=== PATIENT | female | born 1970 | race Caucasian/White ===

== ENCOUNTER 2017-12-05 10:08 | Outpatient (REF) | payer OTHER, SELFPAY ==
--- NOTE | 2017-12-05 08:40 | PAPFT_PTH ---
PATIENT: Oly Stewart LOC: [facility] U#:[id number] AGE/SX: 47/F ROOM: RE12/05/[address]: Muna Puente : 1970 BED: DIS: 12/05/2017 SPEC #: [id number] RECD: 12/05/17 12:47 STATUS: GALDINO REQ #: [id number] JOSE ALFREDO: 12/05/17 08:[address]: Muna Puente DEPT: [facility] Cytology RECD BY: Macrina Thompson ENTERED: 12/05/17 12:47 SP TYPE: PAPFT HIWOT DR: Mesha Aly, KHANH Tissues: 1 - CX/ENDOCX FOR PAP SMEARS Procedures: PAP THIN PREP/UVM Screening HPV DNA PROBE Comments: [id number]
== END 2017-12-05 10:28 ==
LOC: LBN 10:08
PROVIDERS: PCP Nurse Practitioner Gerontology; Visit Provider Obstetrics & Gynecology Gynecology
DX: Z12.4 Encounter for screening for malignant neoplasm of cervix (principal); Z11.51 Encounter for screening for human papillomavirus (HPV)
CPT/HCPCS: 88142; 87624

== ENCOUNTER 2017-12-18 00:20 | Outpatient (CLI) | payer OTHER, SELFPAY ==
--- NOTE | 2017-12-18 09:04 | DI.MAMMO_ITS ---
SYMPTOM/DIAGNOSIS: SCREENING, Z12.31 MAMMOGRAMS: Mammograms were interpreted according to the usual protocol including computer analysis with CAD system, tomosynthesis and C view imaging. Comparison with prior examinations. Breast density C. No masses or microcalcifications are seen. There is nothing to suggest malignancy. IMPRESSION: Negative mammogram. Routine screening is recommended. Category I. MQSA ASSESSMENT OF FINDINGS: Negative. Category 1. Patient will receive a letter notifying them of these results. Bi-RADS category C. The breasts are heterogeneously dense, which may obscure small masses.
== END 2017-12-18 00:40 ==
PROVIDERS: PCP Nurse Practitioner Gerontology; Visit Provider Obstetrics & Gynecology Gynecology
DX: Z12.31 Encounter for screening mammogram for malignant neoplasm of breast (principal)
CPT/HCPCS: 77063; 77067

== ENCOUNTER 2018-09-07 16:25 | Outpatient (REF) | payer OTHER, SELFPAY ==
--- NOTE | 2018-09-07 15:10 | SKI_PTH ---
PATIENT: Oly Stewart LOC: [facility] U#:[id number] AGE/SX: 47/F ROOM: RE09/07/[address]: Chanelle Laws MD : 1970 BED: DIS: 09/07/2018 SPEC #: [id number] RECD: 09/07/18 17:27 STATUS: GALDINO REQ #: [id number] JOSE ALFREDO: 09/07/18 15:[address]: Chanelle Laws DEPT: Surgical Specimen RECD BY: Macrina Thompson ENTERED: 09/07/18 17:27 SP TYPE: ALICIA MI DR: Mesha Aly, KHANH Tissues: 1 - SKIN BIOPSY(SHAVE/PUNCH) Procedures: SKIN LEVEL 4 Comments: [id number]
== END 2018-09-07 16:45 ==
LOC: LBN 16:25
PROVIDERS: PCP Nurse Practitioner Gerontology; Visit Provider Surgery
DX: L82.1 Other seborrheic keratosis (principal)
CPT/HCPCS: 88305

== ENCOUNTER 2020-01-20 03:48 | Outpatient (CLI) | payer OTHER, SELFPAY ==
--- NOTE | 2020-01-20 12:00 | DI.MAMMO_ITS ---
EXAM: MG MAMMO SCREENING CLINICAL HISTORY: screening. TECHNIQUE: Bilateral full field digital CC and MLO mammographic images were obtained with 3D tomosyn thesis and utilizing computer aided detection (CAD). COMPARISON: Prior mammograms dating back to 2011, the most recent being December 2017.. Breast ultr asound 2014 was reviewed. FINDINGS: Fibroglandular tissue is moderately dense, this decreasing sensitivity mammogram finding in underlyin g lesions There is a new nodule posteriorly in the left breast, located approximately 6 centimetres in from the nipple., best seen on the 3D MLO imaging and measuring approximately 1.6 by 1.1 centimetres. More e vident on the MLO than the CC view.. There are punctate microcalcifications in this region. No obvi ous no abnormalities seen in the opposite-right breast. No new architectural distortion or skin thickening-traction IMPRESSION: Dense bilateral fibroglandular tissue. New nodule posteriorly in the right breast, probably lateral of center. Spot compression CC and MLO views are recommended. Also breast ultrasound. BI-RADS Category 0 - Assessment Incomplete: Need additional imaging evaluation Breast Density - Category C - Heterogeneously dense Breast density Category C or D implies that the patient has dense breast tissue. Dense breast tissue can make it harder to find cancer on a mammogram. Dense breast tissue is also associated with an incr eased risk of breast cancer. This information about the result of the mammogram report was provided to the patient to raise their awareness. Use this report when you speak with the patient about their risks for breast cancer, which includes their family history. At that time, you may recommend additional screening tests (Ultrasoun d or MRI) as these tests may add significant information. A negative radiographic report should not delay biopsy if a dominant or clinically suspicious mass is present. Up to ten percent of cancers are not identified on mammography. A negative report may reinforce clinical impression. Adenosis and dense breasts may obscure an underlying neoplasm. False positive reports average 6 to 10%. Patient will receive a letter notifying them of these results.
== END 2020-01-20 04:08 ==
PROVIDERS: PCP Nurse Practitioner; Visit Provider Nurse Practitioner
DX: Z12.31 Encounter for screening mammogram for malignant neoplasm of breast (principal); N63.10 Unspecified lump in the right breast, unspecified quadrant
CPT/HCPCS: 77063; 77067

== ENCOUNTER 2020-01-26 00:30 | Outpatient (CLI) | payer OTHER, SELFPAY ==
--- NOTE | 2020-01-26 | DI.US_ITS ---
EXAM: US BREAST LT LIMITED CLINICAL HISTORY: F/U MAMMO, NEW LT BREAST NODULE. TECHNIQUE: Unilateral spot mammographic images were obtained with 3D tomosynthesis and utilizing Photowayser aided detection (CAD). . Complete left breast Ultrasound was also performed. COMPARISON: Prior mammograms dating back to 2011, the most recent being 01/20/2020. This addition al imaging was performed due to findings described on the recent screening mammogram of 01/20/2020. FINDINGS: Additional spot compression 3D cc and MLO views do not dissipate the posteriorly located nodule seen on the recent screening mammogram. We therefore proceeded with breast ultrasound. Complete ultrasound examination of the left breast was performed including all 4 quadrants as well as the retroareolar region and left axilla. This reveals a solitary finding posteriorly at approximately 3 o'clock position which corresponds to the finding on the mammogram. This is comprised of 2 contiguous cysts, the larger being simple in th e smaller being a hemorrhagic cyst, both exhibiting increased through transmission. No worrisome dec reased through transmission. Combined measurement is approximately 13 by 6 millimeters. No other fo alfred findings in all 4 quadrants nor significant retroareolar findings. Left axilla exhibits normal benign-appearing lymph nodes. IMPRESSION: There is a combination of 6 a simple and hemorrhagic microcyst posteriorly in the left breast at 3 o' clock position which corresponds to the finding on the mammogram. Appropriate follow-up is repeat breast ultrasound in 6 months. At that time I recommend that she und ergo bilateral breast ultrasound examination, given the density of her fibroglandular tissue. BI-RADS Category 3 - 6 month - Probably Benign Finding: Recommend follow-up breast ultrasound in 6 mo [facility] Breast Density - Category C - Heterogeneously dense Breast density Category C or D implies that the patient has dense breast tissue. Dense breast tissue can make it harder to find cancer on a mammogram. Dense breast tissue is also associated with an incr eased risk of breast cancer. This information about the result of the mammogram report was provided to the patient to raise their awareness. Use this report when you speak with the patient about their risks for breast cancer, which includes their family history. At that time, you may recommend additional screening tests (Ultrasoun d or MRI) as these tests may add significant information. A negative radiographic report should not delay biopsy if a dominant or clinically suspicious mass is present. Up to ten percent of cancers are not identified on mammography. A negative report may reinforce clinical impression. Adenosis and dense breasts may obscure an underlying neoplasm. False positive reports average 6 to 10%. Patient will receive a letter notifying them of these results.
== END 2020-01-26 00:50 ==
PROVIDERS: PCP Nurse Practitioner; Visit Provider Nurse Practitioner
DX: Z12.31 Encounter for screening mammogram for malignant neoplasm of breast (principal); R92.8 Other abnormal and inconclusive findings on diagnostic imaging of breast; N60.12 Diffuse cystic mastopathy of left breast
CPT/HCPCS: 76642; 77063; 77067

== ENCOUNTER 2021-01-22 02:09 | Outpatient (CLI) | payer OTHER, SELFPAY ==
--- NOTE | 2021-01-22 07:45 | DI.MAMMO_ITS ---
Exam(s) MAMMO SCREENING EXAM: MAMMO SCREENING CLINICAL HISTORY: screening,z12.39. TECHNIQUE: Bilateral full field digital CC and MLO mammographic images were obtained with 3D tomosyn thesis and utilizing computer aided detection (CAD). COMPARISON: Prior mammograms dating back to 2011, the most recent being January 2020. FINDINGS: Fibroglandular tissue pattern is again noted be moderately dense, this somewhat decreasing the sensit ivity of the mammogram for finding hidden underlying lesions. There are no obvious new significant radiographic findings in the right breast. Posteriorly in the left breast there is a suggestion a nodular density located approximately 6 cm in from the nipple on the MLO view and measuring approximately 9 x 8 millimeters. Two small benign-appe aring microcalcifications are evident at this level. No new architectural distortion or skin thickening-traction. IMPRESSION: Dense bilateral fibroglandular tissue. No radiographic evidence of malignancy in the right breast . However, there is a possible nodule posteriorly in the left breast. Spot compression view and ultras ound recommended. BI-RADS Category 0 - Assessment Incomplete: Need additional imaging evaluation Breast Density - Category C - Heterogeneously dense Breast density Category C or D implies that the patient has dense breast tissue. Dense breast tissue can make it harder to find cancer on a mammogram. Dense breast tissue is also associated with an incr eased risk of breast cancer. This information about the result of the mammogram report was provided to the patient to raise their awareness. Use this report when you speak with the patient about their risks for breast cancer, which includes their family history. At that time, you may recommend additional screening tests (Ultrasoun d or MRI) as these tests may add significant information. A negative radiographic report should not delay biopsy if a dominant or clinically suspicious mass is present. Up to ten percent of cancers are not identified on mammography. A negative report may reinforce clinical impression. Adenosis and dense breasts may obscure an underlying neoplasm. False positive reports average 6 to 10%. Patient will receive a letter notifying them of these results.
== END 2021-01-22 02:29 ==
PROVIDERS: PCP Nurse Practitioner; Visit Provider Obstetrics & Gynecology
DX: Z12.31 Encounter for screening mammogram for malignant neoplasm of breast (principal); R92.8 Other abnormal and inconclusive findings on diagnostic imaging of breast
CPT/HCPCS: 77063; 77067

== ENCOUNTER 2021-01-30 00:49 | Outpatient (CLI) | payer OTHER, SELFPAY ==
--- NOTE | 2021-01-30 | DI.MAMMO_ITS ---
Exam(s) MG MAMMO SCREEN CALL BACK UNI US BREAST LT LIMITED EXAM: MG MAMMO SCREEN CALL BACK UNI and U/S breast LT limited CLINICAL HISTORY: F/U MAMMO, NODULAR DENSITY. TECHNIQUE: Craniocaudal and mediolateral oblique Full Field Digital Mammography views of the left br east with Computer Aided Diagnosis followed by Tomosynthesis and left breast ultrasound. COMPARISON: Priors available for comparison. FINDINGS: Mammography/Tomosynthesis: Masses/Architectural Distortion: The nodular density in the posterior left breast on the MLO view is again seen. This was present on the prior examinations of 01/20/2020. It is unchanged compared to t he prior examination. Microcalcifictions: No suspicious pleomorphic-type are seen. Skin Thickening/Nipple Retraction: None. Left breast US: The upper inner and upper outer quadrants of the left breast were evaluated sonograph ically. Echotexture: Normal appearance of the glandular tissue. Shadowing: No suspicious foci. Cyst: There is a simple cysts seen at the 11 o'clock position of the left breast 1 cm from the nipple measuring 5 mm in maximum diameter. Two adjacent cysts are again seen at the 3 o'clock position of the left breast 2 cm from the nipple and are unchanged. Solid lesions: None seen. Ductal dilation: None. IMPRESSION: 1. No evidence of malignancy is noted. No change in appearance of the cysts at the 3 o'clock position of the left breast which appear to correspond to the mammographic abnormality. 2. Unless there is more urgent need, follow-up screening mammography is recommended, as per [place] [employer] guidelines. 3. The findings were discussed with the patient on the date of the examination. BI-RADS Category 2 - Benign Findings Breast Density - Category C - Heterogeneously dense Breast density Category C or D implies that the patient has dense breast tissue. Dense breast tissue can make it harder to find cancer on a mammogram. Dense breast tissue is also associated with an incr eased risk of breast cancer. This information about the result of the mammogram report was provided to the patient to raise their awareness. Use this report when you speak with the patient about their risks for breast cancer, which includes their family history. At that time, you may recommend additional screening tests (Ultrasoun d or MRI) as these tests may add significant information. A negative radiographic report should not delay biopsy if a dominant or clinically suspicious mass is present. Up to ten percent of cancers are not identified on mammography. A negative report may reinforce clinical impression. Adenosis and dense breasts may obscure an underlying neoplasm. False positive reports average 6 to 10%. Patient will receive a letter notifying them of these results.
== END 2021-01-30 01:09 ==
PROVIDERS: PCP Nurse Practitioner; Visit Provider Obstetrics & Gynecology
DX: Z12.31 Encounter for screening mammogram for malignant neoplasm of breast (principal); R92.8 Other abnormal and inconclusive findings on diagnostic imaging of breast; N60.02 Solitary cyst of left breast
CPT/HCPCS: 76642; 77063; 77067

== ENCOUNTER 2021-08-24 09:48 | Day surgery (SDC) | payer OTHER, SELFPAY ==
[2021-08-24 10:15] VITALS: BP 128/78; PULSE 63; RESP 18; TEMP 36.4; O2SAT 100
--- NOTE | 2021-08-24 12:27 | SOFT_PTH ---
PATIENT: Oly Stewart LOC: [facility] U#:[id number] AGE/SX: 50/F ROOM: RE08/24/[address]: Ernesto Alba : 1970 BED: DIS: 08/24/2021 SPEC #: [id number] RECD: 08/24/21 16:31 STATUS: GALDINO REJl #: [id number] JOSE ALFREDO: 08/24/21 12:[address]: Ernesto Alba DEPT: Surgical Specimen RECD BY: Macrina Thompson ENTERED: 08/24/21 16:32 SP TYPE: SOFT OTHR DR: Claudia Bhakta, PhD FIRE EXTINGUISHER TESTER Tissues: 1 - SOFT TISSUE MISC (INC. LIPOMA) Procedures: GROSS AND MICRO LEVEL 3 Comments: [id number]
[2021-08-24] MEDS: Bupivacaine 0.5% Pres-Free 30 ML VIAL (12:34)
--- NOTE | 2021-08-24 12:44 | DSE_ITS ---
Date of service: 08/24/21 DS: Diagnosis Discharge Diagnosis (1) Foreign body reaction of the skin: Start date: 08/24/21 Start time: 12:47 Status: Acute Discharge Plan Disposition Patient Disposition: HOME Condition: Good Discharge Details Reason For Visit: Excision foreign body granuloma right hallux Attending Provider: Ernesto Alba Primary Care Provider: Claudia Bhakta Home Meds and New Rx's Prescriptions: No Action ibuprofen [Motrin IB] 200 MG tablet 2 tab PO WHEN NECESSARY sumatriptan succinate 50 mg tablet 50 mg PO PRN PRN (Reason: Headache) Discharge Instructions Activity:: Elevate Remove Dressings/Wound Care:: Do Not Remove Shower/Bathe:: Cover Diet:: Normal Diet Discharge Orders Discharge Orders: Discharge Order (Routine); Ordered 08/24/21 Ordered By: Ernesto Alba DS: Summary Time Spent with Patient providing and/or coordinating discharge services: Less than 30 minutes Status at Discharge Functional status at discharge: independent ambulation Overall status at discharge: patient is back to baseline Mental Status: mental status grossly normal Speech and Movement: speech and movement normal Mood: congruent mood Affect: normal affect Exam Psych Mental Status: mental status grossly normal Speech and Movement: speech and movement normal Mood: congruent mood Affect: normal affect DS: Data Vitals/I&O Vitals and I&O: Vital Signs Temperature 36.4 C L 08/24/21 10:15 Pulse 63 08/24/21 10:15 Pulse Rhythm Regular 08/24/21 10:15 Respiratory Rate 18 08/24/21 10:15 Respiratory Depth Deep 08/24/21 10:15 Blood Pressure 128/78 08/24/21 10:15 Pulse Oximetry 100 08/24/21 10:15 Oxygen Delivery Method Room Air 08/24/21 10:15 Oxygen Flow Rate 0 08/24/21 10:15 Pain Level 0 08/24/21 10:15 Intake & Output 08/23/21 08/24/21 08/24/21 18:59 06:59 18:59 Weight 64.5 kg PFSH All Active Problems Foreign body reaction of the skin (Acute) Dyspnea (Acute) Situational depression (Acute) Kramer of toe (Acute) Migraine, menstrual (Acute) Gastroesophageal reflux disease (Acute) Medical History Kidney stone Postcoital bleeding episode in 2011. saw Dr Frey. 4 episodes since Jan 2013. Surgical History Arthroplasty of knee (08/28/11) LEFT RIGHT TOE SURGERY (~08/2012) Family History Son No problems noted. Son No problems noted. Social History Smoking/Tobacco Use Status: Never Smoking risk assessment performed?: Yes Alcohol Intake: never Drug use: Never Substance use type: does not use Adopted: Yes Caregiver/Support person: No Household members: significant other Housing: house Number of Children: 2 Communication Needs: None Do you need help understanding health information?: Never current occupation: [employer] Pets and animals: Yes Pets and animals: dog(s) and bird(s) Sexually active: Yes Do you think of yourself as: straight/heterosexual Current gender identity: female What is your relationship status?: living with partner How often do you talk on the phone with friends or family?: twice per week How often do you get together with friends or relatives?: once per week How often do you attend orthodoxy or religion services?: decline to answer Do you belong to any clubs or organized social groups?: no Panel score (0-1 are the most socially isolated patients): 2 What type of physical activity do you participate in: walking Duration: 30-45 minutes/day Frequency: 3-4 times per week Ara/Confucianist: Quaker Special ara needs: No Seatbelt use: always Helmet use: Yes Helmet use: always Drive intox or ride w/intox furniture mover driver: No Do you feel safe at home: Yes Do you feel safe in your relationship?: Yes Would you like helpful sources: No Female Reproductive History Menstrual Duration of menses: 3-5 days control method: other History History 2 Para Hx # Term Pregnancies 2 Multiple births Hx # Pregnancies Ectopic pregnancies AB induced Hx Number of Living Children AB spontaneous
--- NOTE | 2021-08-24 12:48 | W.PM.OP ---
Date of service: 08/24/21 Time of Service: 12:51 Operative Note Operative Note DATE OF PROCEDURE: 08/24/21 PRE-OP DIAGNOSIS: Grouchy about thisforeign body granuloma, right hallux PROCEDURE: Excision soft tissue mass with primary repair right hallux SURGEON: Ernesto Alba ANESTHESIA TYPE: Local By Surgeon Refer to Anesthesia Record ESTIMATED BLOOD LOSS: 1 PATHOLOGY: other TOURNIQUET TIME: 0 COMPLICATIONS: None Patient was transported to: same day Patient's condition: stable Indications: 50-year-old female status post extensor hallucis tendon repair of the right hallux remotely who is developed soft tissue swelling with granuloma like formation over the base of the proximal phalanx which is become very tender in shoe gear interfering with daily activity. Procedure Description: Oly was brought to the operative suite placed in the supine position where the right foot was prepped and draped in the usual sterile podiatric fashion. Anesthesia was achieved through a digital block utilizing 8 cc of a 50: 50 mixture 1% lidocaine with epinephrine 0.5% Marcaine plain. Timeout was performed for safe surgery. Attention was directed to the soft tissue mass which measured approximately 4 mm x 6 mm. It was firm and nonpulsatile. It appeared to be adherent to the underlying tendon structure. 2 elliptical incisions were subsequently placed so as to excise this mass utilizing 3-1 construct. Medial and lateral incisions were made and deepened so as to underscore the soft tissue mass. It appeared to be attached to the dorsal surface of the extensor tendons. It was dissected free with a #15 scalpel from this tissue layer. The mass and skin wedge was subsequently removed and the distal edge tacked with a suture for orientation. Inspection of the wound revealed multiple pieces of suture, color black consistent with nylon. The wound was copiously irrigated. Soft tissue dissection was performed so as to mobilize the skin to facilitate closure. The extensor tendon was gently debrided to remove excessive thickening and in so doing 2 additional small pieces of black suture were identified and removed. The wound was copiously irrigated a second time. I closed the wound with simple interrupted suture of 4-0 nylon. The edges came together without undue stress. Xeroform gauze fluff compression dressings were applied. Oly left the OR with vital signs stable vascular status intact sharp and sponge counts were correct. Should be followed by myself in the office next week. Dictated with Dragon naturally speaking not reviewed for accuracy.
[2021-08-24 12:57] VITALS: BP 125/87; PULSE 76; RESP 18; TEMP 36; O2SAT 100
== END 2021-08-24 13:18 | disposition home or self-care (01) ==
PROVIDERS: PCP Nurse Practitioner; Visit Provider Podiatrist
PROC: (CPT 28045; principal; 2021-08-24 13:30)
DX: L92.3 Foreign body granuloma of the skin and subcutaneous tissue (principal)
CPT/HCPCS: 28045; 88304

== ENCOUNTER 2022-04-02 01:23 | Outpatient (CLI) | payer OTHER, SELFPAY ==
--- NOTE | 2022-04-02 06:45 | DI.MAMMO_ITS ---
Exam(s) MAMMO SCREENING EXAM: MAMMO SCREENING CLINICAL HISTORY: screening,z12.39 TECHNIQUE: Bilateral full field digital CC and MLO mammographic images were obtained with 3D tomosyn thesis and utilizing computer aided detection (CAD). COMPARISON: Available for comparison. FINDINGS: Masses/Architectural Distortion: None seen. Microcalcifications: No suspicious pleomorphic-type are seen. Skin Thickening/Nipple Retraction: None. IMPRESSION: 1. No significant interval change with no specific features of malignancy noted. 2. Unless there is more urgent need, screening mammography is recommended, as per [place] [employer] guidelines. BI-RADS Category 1 - Negative Breast Density - Category C - Heterogeneously dense Breast density category C or D implies that the patient has dense breast tissue. Dense breast tissue is very common and is not abnormal but dense breast tissue can make it harder to find cancer on a ma mmogram. Also, dense breast tissue may increase their breast cancer risk. This information about the result of the mammogram report was provided to the patient to raise their awareness. Use this report when you speak with the patient about their risks for breast cancer, which includes their family hist ory. At that time, you may recommend for more screening tests (Ultrasound or MRI) as they might be us eful based on their risk. A negative radiographic report should not delay biopsy if a dominant or clinically suspicious mass is present. Up to ten percent of cancers are not identified on mammography. A negative report may reinforce clinical impression. Adenosis and dense breasts may obscure an underlying neoplasm. False positive reports average 6 to 10%. Patient will receive a letter notifying them of these results.
== END 2022-04-02 01:43 ==
LOC: DI 01:23
PROVIDERS: PCP Nurse Practitioner Family; Visit Provider Nurse Practitioner Family
DX: Z12.31 Encounter for screening mammogram for malignant neoplasm of breast; R92.8 Other abnormal and inconclusive findings on diagnostic imaging of breast
CPT/HCPCS: 77063; 77067

== ENCOUNTER 2022-08-09 14:01 | Outpatient (REF) | payer OTHER, SELFPAY ==
--- NOTE | 2022-08-09 13:05 | SKI_PTH ---
PATIENT: Oly Stewart LOC: [facility] U#:[id number] AGE/SX: 51/F ROOM: RE08/09/[address]: Nayana Carey MD : 1970 BED: DIS: 08/09/2022 SPEC #: [id number] RECD: 08/09/22 16:27 STATUS: GALDINO MOLINA #: [id number] JOSE ALFREDO: 08/09/22 13:[address]: Nayana Carey DEPT: Surgical Specimen RECD BY: Macrina Thompson ENTERED: 08/09/22 16:27 SP TYPE: ALICIA MI DR: Tonya Mchugh, MENTAL HEALTH PROFESSIONAL Tissues: 1 - SKIN BIOPSY(SHAVE/PUNCH) Procedures: SKIN LEVEL 4 Comments: [id number]
== END 2022-08-09 14:02 | disposition home or self-care (01) ==
LOC: LBN 14:01
PROVIDERS: PCP Nurse Practitioner Family; Visit Provider Surgery
DX: L85.9 Epidermal thickening, unspecified; R23.4 Changes in skin texture
CPT/HCPCS: 88305

== ENCOUNTER 2022-09-25 12:26 | Emergency (ER) | payer OTHER, SELFPAY ==
--- NOTE | 2022-09-25 12:30 | DI.RAD_ITS ---
Exam(s) XR ANKLE RT COMPLETE EXAM: XR ANKLE RT COMPLETE CLINICAL HISTORY: Ankle injury. TECHNIQUE: 2D digital imaging was performed. Three views. COMPARISON: CR RIGHT ANKLE COMPLETE from 09/17/2014 FINDINGS: BONES: No acute fracture is present. No bony destructive lesion is seen. JOINTS: The ankle mortise is normally aligned. Tibiotalar joint effusion. No significant degenerat serge changes. SOFT TISSUE: Swelling greatest around the lateral malleolus. IMPRESSION: Soft tissue swelling.. DATA REPOSITORY: RADIATION DOSE DELIVERED:
[2022-09-25 12:36] VITALS: BP 117/99; PULSE 76; RESP 17; TEMP 36.8; O2SAT 100
--- NOTE | 2022-09-25 13:32 | W.ED.GENAD ---
Discharge Plan Disposition Patient Disposition: Home Condition: Stable Discharge Details Clinical Impression: Moderate right ankle sprain Primary Care Provider: Tonya Mchugh ED Provider: Domi Quiñonez Home Meds and New Rx's Prescriptions: No Action ibuprofen [Motrin IB] 200 MG tablet 2 tab PO WHEN NECESSARY sumatriptan succinate 50 mg tablet 50 mg PO ONCE Qty: 20 6RF Patient Comments: no longer taking 09/25/22 sumatriptan succinate 50 mg tablet 50 mg PO PRN PRN (Reason: Headache) Discharge Instructions Instructions: Ankle Sprain (ED) Additional Instructions: Please wear the splint and use crutches as needed for comfort. Toe touch weightbearing , advance as tolerated. Rest ice compression elevation. No evidence of fracture or broken bones noted on the x-rays. If it continues to bother you after approximately 3 to 4 weeks you may follow-up with orthopedics if needed for repeat imaging. Follow up with primary care provider in 3-5 days if needed. Return to ED sooner if any worsening or concerns. Increase oral fluids. Please take Tylenol or Ibuprofen with food every 4-6 hours as needed for pain and swelling. Stand Alone Forms: Work Release Referrals: Aaron Baird PA [[facility] COORDINATOR] - Return if symptoms worsen Tonya Mchugh NP [Primary Care Provider] - Discharge Data Discharge Date/Time-TO BE ENTERED AT DEPARTURE: 09/25/22 14:03 Medical Decision Making 52-year-old female presents to the ER with a chief complaint of right ankle swelling and pain after inversion type injury which happened around 10 AM in the parking lot. She did take ibuprofen 40 mg prior to arrival, has been performing RICE procedures. On exam she does have some lateral malleolus swelling and tenderness noted. She has increasing pain with ambulation. She did discuss her left knee, denies any neck or back pain loss of consciousness or any other associated symptoms. She has past medical history of kidney stones, arthroplasty of left knee, right toe surgery. X-ray imaging is negative for fracture. Please see official report below. Will place patient in a lace up ankle stabilizer and crutches. This text was generated using [employer] system, please disregard any oddities of phrase or misspellings. Imaging Data Radiologic Study: Imaging: X-Ray Radiologist's impression: R ANKLE RT COMPLETE EXAM:? XR ANKLE RT COMPLETE CLINICAL HISTORY: ? Ankle injury. ? TECHNIQUE:? 2D digital imaging was performed.? Three views. COMPARISON:? CR RIGHT ANKLE COMPLETE from 09/17/2014 FINDINGS: BONES: No acute fracture is present.? No bony destructive lesion is seen. JOINTS: The ankle mortise is normally aligned. ? Tibiotalar joint effusion.? No significant degenerative changes. SOFT TISSUE: Swelling greatest around the lateral malleolus. IMPRESSION: Soft tissue swelling..? HPI General Mode of arrival: wheelchair. Date/Time Provider Initiated Documentation: 09/25/22 12:28. Limitations to Documentation: no limitations. Information obtained by: patient, RN notes reviewed and old records reviewed. HPI Narrative: 52-year-old female presents to the ER with a chief complaint of right ankle swelling and pain after inversion type injury which happened around 10 AM in the parking lot. She did take ibuprofen 40 mg prior to arrival, has been performing RICE procedures. On exam she does have some lateral malleolus swelling and tenderness noted. She has increasing pain with ambulation. She did discuss her left knee, denies any neck or back pain loss of consciousness or any other associated symptoms. She has past medical history of kidney stones, arthroplasty of left knee, right toe surgery. Related Data Home Medications Medication Instructions Recorded Confirmed ibuprofen 200 mg tablet (Motrin IB) 2 tab PO WHEN NECESSARY 06/17/12 09/25/22 sumatriptan succinate 50 mg tablet 50 mg PO PRN PRN Headache 08/24/21 09/25/22 sumatriptan succinate 50 mg tablet 50 mg PO ONCE #20 tabs 10/18/21 08/24/22 Previous Rx's Medication Instructions Recorded sumatriptan succinate 50 mg tablet 50 mg PO ONCE #20 tabs 10/18/21 Allergies Allergy/AdvReac Type Severity Reaction Status Date / Time nitrofurantoin AdvReac Intermediate Generalized Verified 09/25/22 12:39 illness Sulfa (Sulfonamide AdvReac Intermediate H/A; Verified 09/25/22 12:39 Antibiotics) NAUSEA & VOMITING hydrocodone AdvReac Unknown N/V Verified 09/25/22 12:39 oxycodone AdvReac Unknown N/V Verified 09/25/22 12:39 General Stated Complaint: Orthopedic NATHANIEL: 4 Review of Systems All systems reviewed & are unremarkable except as noted in HPI and below Constitutional Constitutional: Denies headache(s) ENT Ears, Nose, Mouth, and Throat: Denies headache(s) and Denies neck pain Musculoskeletal Musculoskeletal: Reports as per HPI, Denies back pain, Reports arthralgias, Reports joint swelling and Denies neck pain Neurologic Neurologic: Denies confusion and Denies headache(s) Psychiatric Psychiatric: Denies confusion PFSH All Active Problems (Updated 09/25/22 @ 13:46 by Domi Quiñonez NP) Moderate right ankle sprain (Acute) Scalp lesion (Acute) Seborrheic keratoses (Acute) Dyspnea (Acute) Situational depression (Acute) [place] of toe (Acute) Migraine, menstrual (Acute) Gastroesophageal reflux disease (Acute) Medical History Foreign body reaction of the skin Kidney stone Postcoital bleeding episode in 2011. saw Dr Frey. 4 episodes since Jan 2013. Surgical History Arthroplasty of knee (08/28/11) LEFT RIGHT TOE SURGERY (~08/2012) Family History Son No problems noted. Son No problems noted. Social History Smoking/Tobacco Use Status: Never Second Hand Exposure: No Smoking risk assessment performed?: Yes Alcohol Intake: current Alcohol Intake frequency: holidays/special occasions only Alcohol type: hard liquor Drug use: Never Substance use type: does not use Counseling given: Yes Adopted: Yes Caregiver/Support person: No Household members: significant other Housing: house Number of Children: 2 Communication Needs: None Do you need help understanding health information?: Never current occupation: [employer] Pets and animals: Yes Pets and animals: dog(s) and bird(s) Sexually active: Yes Do you think of yourself as: straight/heterosexual Current gender identity: female What is your relationship status?: living with partner How often do you talk on the phone with friends or family?: twice per week How often do you get together with friends or relatives?: once per week How often do you attend yazidism or sikhism services?: 1-3 times per year Do you belong to any clubs or organized social groups?: no Panel score (0-1 are the most socially isolated patients): 2 What type of physical activity do you participate in: walking Duration: 15-30 minutes/day Frequency: 3-4 times per week Ara/Confucianism: Yarsanism Special ara needs: No Seatbelt use: always Helmet use: Yes Helmet use: always Drive intox or ride w/intox bottom hoop driver: No Do you feel safe at home: Yes Do you feel safe in your relationship?: Yes Would you like helpful sources: No Female Reproductive History Menstrual Duration of menses: 3-5 days control method: other History History 2 Para Hx # Term Pregnancies 2 Multiple births Hx # Pregnancies Ectopic pregnancies AB induced Hx Number of Living Children AB spontaneous Exam Extrem General: normal to inspection Right lower extremity: normal capillary refill and ankle Details: tenderness Location: of the lateral malleolus, swelling Details: laterally and ecchymosis lateral Course Vital Signs Vital signs: Vital Signs Temperature 36.8 C 09/25/22 12:36 Pulse 76 09/25/22 12:36 Respiratory Rate 17 09/25/22 12:36 Blood Pressure 117/99 H 09/25/22 12:36 Pulse Oximetry 100 09/25/22 12:36 Temperature 36.8 C 09/25/22 12:36 Temperature Source Skin 09/25/22 12:36 Pulse 76 09/25/22 12:36 Respiratory Rate 17 09/25/22 12:36 Respiratory Effort Normal 09/25/22 12:36 Blood Pressure 117/99 H 09/25/22 12:36 Blood Pressure Position Sitting 09/25/22 12:36 Pulse Oximetry 100 09/25/22 12:36 Oxygen Delivery Method Room Air 09/25/22 12:36 Oxygen Flow Rate 0 09/25/22 12:36
== END 2022-09-25 14:03 | disposition home or self-care (01) ==
PROVIDERS: Emergency Provider Registered Nurse Emergency; PCP Nurse Practitioner Family
DX: S93.401A Sprain of unspecified ligament of right ankle, initial encounter (principal); W18.39XA Other fall on same level, initial encounter; Y93.01 Activity, walking, marching and hiking; Y92.481 Parking lot as the place of occurrence of the external cause; Y99.9 Unspecified external cause status
CPT/HCPCS: 81025; 99283; 73610

== ENCOUNTER 2023-03-26 15:36 | Outpatient (CLI) | payer OTHER, SELFPAY ==
--- NOTE | 2023-03-26 09:54 | DI.RAD_ITS ---
Exam(s) XR KNEE LT 3V AP,LAT,RAD EXAM: XR KNEE LT 3V AP,LAT,RAD CLINICAL HISTORY: left knee pain. TECHNIQUE: 2D digital imaging was performed of the left knee. Three images were obtained. Merchant ,AP and lateral views were obtained. COMPARISON: CR LEFT KNEE LIMITED 1 OR 2 VIEWS from 08/08/2011 CR KNEES BILAT MERCHANT VIEW from 08/08/2011 FINDINGS: BONES: No acute fracture is present. No bony destructive lesion is seen. JOINTS: There is mild narrowing of the medial femoral tibial joint. There is also again seen mild fl attening of the articular surface of the medial femoral condyle. There is narrowing of the patellofe moral joint and osteophytes present. No joint effusion is seen. No loose body. SOFT TISSUE: Normal. IMPRESSION: Degenerative changes in the left knee particularly involving the patellofemoral joint. DATA REPOSITORY: RADIATION DOSE DELIVERED:
== END 2023-03-26 15:37 | disposition home or self-care (01) ==
LOC: DIORS 15:37
PROVIDERS: PCP Nurse Practitioner Family; Visit Provider Physician Assistant
DX: M17.12 Unilateral primary osteoarthritis, left knee (principal)
CPT/HCPCS: 73562

== ENCOUNTER 2024-05-24 14:57 | Outpatient (REF) | payer OTHER, SELFPAY ==
--- NOTE | 2024-05-24 14:30 | PAPFT_PTH ---
PATIENT: Oly Stewart LOC: [facility] U#:[id number] AGE/SX: 53/F ROOM: RE05/24/[address]: Vesna Starr MD : [id number] BED: DIS: 05/24/2024 SPEC #: [id number] RECD: 05/24/24 16:56 STATUS: GALDINO REQ #: [id number] JOSE ALFREDO: 05/24/24 14:[address]: Vesna Starr DEPT: [facility] Cytology RECD BY: Macrina Thompson ENTERED: 05/24/24 16:57 SP TYPE: PAPFT HIWOT DR: Tonya Mchugh, [employer] Tissues: 1 - CX/ENDOCX FOR PAP SMEARS Procedures: PAP THIN PREP/UVM Screening HPV DNA PROBE Comments: [id number] (HPV 16 & 18/45)
== END 2024-05-24 14:58 | disposition home or self-care (01) ==
LOC: LBN 14:57
PROVIDERS: PCP Nurse Practitioner Family; Visit Provider Obstetrics & Gynecology
DX: Z01.419 Encounter for gynecological examination (general) (routine) without abnormal findings (principal)
CPT/HCPCS: 88142; 87624

== ENCOUNTER 2024-07-16 00:46 | Outpatient (CLI) | payer OTHER, SELFPAY ==
--- NOTE | 2024-07-16 08:00 | DI.MAMMO_ITS ---
Exam(s) MAMMO SCREENING EXAM: MAMMO SCREENING CLINICAL HISTORY: screening,Z12.31. TECHNIQUE: Bilateral full field digital CC and MLO mammographic images were obtained with 3D tomosyn thesis and utilizing computer aided detection (CAD). COMPARISON: Prior mammograms were reviewed. FINDINGS: There has been no significant change in the appearance and distribution of the fibroglandular tissue. There is a new benign macrocalcification in the central left breast noted. There are no new spiculated masses nor malignant appearing microcalcification groups. There is no significant architectural distortion nor skin thickening-retraction. IMPRESSION: No radiographic evidence of malignancy. BI-RADS Category 2 - Benign Findings Breast Density - Category C - The breast are heterogeneously dense, which may obscure small masses. Breast density Category C or D implies that the patient has dense breast tissue. Dense breast tissue can make it harder to find cancer on a mammogram. Dense breast tissue is also associated with an incr eased risk of breast cancer. This information about the result of the mammogram report was provided to the patient to raise their awareness. Use this report when you speak with the patient about their risks for breast cancer, which includes their family history. At that time, you may recommend additional screening tests (Ultrasoun d or MRI) as these tests may add significant information. A negative radiographic report should not delay biopsy if a dominant or clinically suspicious mass is present. Up to ten percent of cancers are not identified on mammography. A negative report may reinforce clinical impression. Adenosis and dense breasts may obscure an underlying neoplasm. False positive reports average 6 to 10%. Patient will receive a letter notifying them of these results.
== END 2024-07-16 01:06 ==
LOC: DI 00:46
PROVIDERS: PCP Nurse Practitioner Family; Visit Provider Obstetrics & Gynecology
DX: Z12.31 Encounter for screening mammogram for malignant neoplasm of breast (principal); R92.333 Mammographic heterogeneous density, bilateral breasts; D24.2 Benign neoplasm of left breast
CPT/HCPCS: 77063; 77067